=== PATIENT | female | born 1990 | race Two or more races ===

== ENCOUNTER 2021-09-18 14:13 | Outpatient (REF) | payer MEDICAID, OTHER, SELFPAY ==
--- NOTE | ~2021-09-18 | XR_ITS ---
EXAMINATION: XR ANKLE, RIGHT CLINICAL INFORMATION: Pain. COMPARISON: None TECHNIQUE: AP, lateral, and mortise views of the right ankle. FINDINGS: Soft tissue swelling, more apparent in the medial surface of the ankle. No unexpected radiopaque foreign bodies. No acute fractures or malalignment. The ankle mortise is congruent. XR/XR ankle RT min 3V IMPRESSION: Nonspecific soft tissue swelling. No acute fractures or malalignment.
--- NOTE | ~2021-09-18 | XR_ITS ---
EXAMINATION: XR KNEE, RIGHT CLINICAL INFORMATION: Pain. COMPARISON: None TECHNIQUE: Four views of the right knee. FINDINGS: No acute fractures or malalignment. No significant degenerative changes. Small joint effusion. No unexpected radiopaque foreign bodies. XR/XR knee RT 4V IMPRESSION: Small joint effusion. No acute fractures or malalignment.
== END 2021-09-18 14:14 | disposition home or self-care (01) ==
LOC: HO.XRAY 14:13
PROVIDERS: PCP Internal Medicine; Visit Provider Internal Medicine
DX: M25.571 Pain in right ankle and joints of right foot (principal); M25.561 Pain in right knee
CPT/HCPCS: 73564; 73610

== ENCOUNTER 2023-07-19 16:01 | Outpatient (REF) | payer MEDICAID, OTHER, SELFPAY ==
--- NOTE | ~2023-07-19 | XR_ITS ---
EXAMINATION: XR KNEE, RIGHT CLINICAL INFORMATION: Chronic pain right knee COMPARISON: X-ray the right knee September 2021 TECHNIQUE: Four views of the right knee. FINDINGS: No fracture or joint effusion. Alignment is anatomic. Joint spaces are maintained. No abnormal soft tissue calcification. XR/XR knee RT 3V IMPRESSION: Normal right knee.
== END 2023-07-19 16:02 | disposition home or self-care (01) ==
LOC: HO.HHCX 16:01
PROVIDERS: Visit Provider Internal Medicine
DX: M25.561 Pain in right knee (principal); G89.29 Other chronic pain
CPT/HCPCS: 73562

== ENCOUNTER 2024-09-26 14:00 | Emergency (ER) | payer MEDICAID, OTHER, SELFPAY ==
--- NOTE | ~2024-09-26 | XR_ITS ---
EXAMINATION: XR CHEST CLINICAL INFORMATION: pain COMPARISON: 01/03/2019. TECHNIQUE: 2 views of the chest were obtained. FINDINGS: The cardiac, hilar, and mediastinal contours are normal. The lungs are clear bilaterally. There is no pneumothorax or pleural effusion. There is no focal osseous or soft tissue abnormality. XR/XR chest 2V IMPRESSION: Normal chest. Electronically signed by: Skyler Akers MD 09/26/2024 03:11 PM BERRY
--- NOTE | 2024-09-26 14:04 | ECG_ITS ---
Test Reason : chest pain Blood Pressure : */* mmHG Vent. Rate : 72 BPM Atrial Rate : 72 BPM P-R Int : 128 ms QRS Dur : 90 ms QT Int : 418 ms P-R-T Axes : 65 27 45 degrees QTcB Int : 457 ms Normal sinus rhythm with sinus arrhythmia Normal ECG No previous ECGs available Referred By: Generic ED Physician Electronically Signed By: LAURENCE DOCKERY
[2024-09-26 14:39] VITALS: BP 132/49; PULSE 69; RESP 18; TEMP 36.8; O2SAT 100; BMI 24.5
--- NOTE | 2024-09-26 14:39 | ED.GENADULT ---
HPI - General Adult General Chief complaint: Chest Pain Stated complaint: Chest Pain Time Seen by Provider: 09/26/24 19:29 Source: patient and EMS Mode of arrival: ambulatory Limitations: no limitations History of Present Illness ED Provider: rosemarie ozuan NP HPI narrative: Patient is a 34-year-old female who presents emergency department for evaluation. She reports over the past 2 days she has been experiencing pain to the left anterior chest it is constant with varying intensity. She admits to a history of having acid reflux, and states that she typically experiences pain on the right side of her chest associated with her acid reflux. Has not previously experienced it on the left. However, she does state the way that the pain feels is exactly the same as what she has experienced on the right the only difference is the location it feels like ?it is inflamed and burning?. She contacted her primary care doctor's office and was advised to come to the emergency department for evaluation. She denies any radiation of the pain, no diaphoresis, has associated nausea but no vomiting, pain is not exacerbated on exertion. Denies any recent URI symptoms. Denies history of VTE/malignancy, no lower extremity redness pain or swelling. Related Data Previous Rx's ?Medication ?Instructions ?Recorded famotidine 20 mg tablet 20 mg PO DAILY #30 tabs 09/26/24 Allergies Allergy/AdvReac Type Severity Reaction Status Date / Time No Known Allergies Allergy Verified 09/26/24 14:43 Review of Systems Review of Systems: Yes all other systems are reviewed and are negative PMFSH Past Medical History Attestation statement: The following information was validated with the patient. Source: old records reviewed Social History Social History Smoked in Last 30 Days: No Use of substances other than those prescribed or required for medical reasons: No Advance Directives: No Advance Directives Information Provided: Yes Physical Exam ED Vital Signs: Vital Signs - 24 hr 09/26/24 14:39 09/26/24 19:33 09/26/24 21:03 Temperature 98.3 F 98.5 F 98.5 F Pulse Rate 69 62 61 Respiratory Rate 18 15 15 Blood Pressure 132/49 L 123/56 L 111/59 L Pulse Oximetry 100 100 100 Oxygen Delivery Method Room Air Room Air Room Air 09/26/24 21:53 Temperature 98.5 F Pulse Rate 61 Respiratory Rate 15 Blood Pressure 111/59 L Pulse Oximetry 100 Oxygen Delivery Method Room Air BMI result Body Mass Index 24.5 Appearance: Alert.?Oriented to person, place and time. No acute distress.?Normal affect. Eyes: Pupils equal, round and reactive to light.? ENT: Pharynx normal.?? Neck: Normal inspection.? Neck supple.??No JVD. CVS: Heart sounds normal. Normal heart rate and rhythm.? Pulses normal.?? Respiratory: No respiratory distress.? Lung sounds clear to auscultation bilaterally?? Abdomen: Soft and non-tender. Normoactive bowel sounds. No pulsatile mass.?? Skin: Skin warm and dry.? Normal skin color.? ?? Extremities: No lower extremity edema.? No calf ttp? Neuro: Moves all extremities spontaneously. Sensation intact bilaterally. CN II-XII intact. No focal neuro deficits. Ambulates with normal steady gait. Course Course Course Narrative: RME, this is a rapid medical exam performed by Isaías Spann please refer to primary provider for complete H&P- 34-year-old female presents evaluation of chest pain. Symptoms started 2 days ago. She does have a history of GERD but her symptoms feel different than her typical GERD symptoms. She feels that her GERD symptoms are usually right-sided but today her pain is in the left. Plan for cardiac workup Medications Administered Discontinued Medications Generic Name Dose Route Start Last Admin Trade Name Freq PRN Reason Stop Dose Admin Al Hydroxide/Mg Hydroxide 30 ml 09/26/24 20:19 09/26/24 20:33 Magnesium Hydrox/Alum Hydrox 30 Ml Oral.Susp PO 09/26/24 20:20 30 ml ONCE ONE Administration Famotidine 20 mg 09/26/24 20:19 09/26/24 20:31 Famotidine 20 Mg Tablet PO 09/26/24 20:20 20 mg ONCE ONE Administration Lidocaine HCl 15 ml 09/26/24 20:19 09/26/24 20:33 Lidocaine Hcl Viscous 2 % 15 Ml Solution MUCOUS MEM 09/26/24 20:20 15 ml ONCE ONE Administration Medical Decision Making Medical Decision Making [facility] Narrative: Patient is a 34-year-old female with past medical history of GERD who presents to the emergency department for evaluation with complaint of chest pain as per HPI. Pain is reproducible to palpation, diffuse throughout the anterior chest. No evidence of volume overload or shock on exam. EKG revealing normal sinus rhythm with ventricular rate of 72, QTC 457, without signs of acute ischemia. EKG without evidence of STEMI. High sensitive troponin below detectable limits consistent with ACS. Low suspicion for acute PE (Wells low risk), pneumothorax, thoracic aortic dissection, cardiac effusion / tamponade. No recent trauma or injury, no tracheal deviation, unlikely tension pneumothorax. No recent URI symptoms to suggest viral illness, pneumonia, costochondritis, viral serologies negative. No abdominal tenderness upon palpation, negative Bhatia sign, unlikely acute cholecystitis, choledocholithiasis, no fever or jaundice to suggest acute cholangitis, may possibly be biliary colic secondary to cholelithiasis. Denies excessive alcohol consumption, history of diabetes, lower suspicion acute pancreatitis. Will try treatment with Maalox and lidocaine viscous in addition to famotidine at this time. Differential Diagnosis Differential Diagnoses: The differential diagnosis associated with the presentation includes (See narrative above) Admission/Observation Consideration of admission/observation: Escalation of care including admission/observation considered (See narrative above and course narrative for further detail) Lab Data MDM Lab Attestation statement: I reviewed the patient's lab results. CBC is without leukocytosis anemia or thrombocytopenia. No electrolyte derangement. No JOELLEN. Mildly elevated AST/ALT with normal lipase benign abdominal examination, unlikely acute hepatobiliary etiology. 09/26/24 19:05 09/26/24 19:05 Labs: Lab Results 09/26/24 Range/Units 19:05 WBC 7.3 (4.8-10.8) X10*3/uL RBC 4.33 (4.20-5.50) X10*6/uL Hgb 12.7 (12.0-16.0) g/dl Hct 38.2 (37.0-47.0) % MCV 88.2 (80.0-98.0) fL MCH 29.3 (27.0-33.0) pg MCHC 33.2 (31.0-35.0) g/dl RDW 12.4 (11.0-16.0) % Plt Count 245 (160-400) X10*3/uL MPV 9.7 (9.4-12.3) fL Immature Gran % (Auto) 0.3 (0.0-0.4) % Neut % (Auto) 46.5 (45-73) % Lymph % (Auto) 41.5 H (20-40) % [place] % (Auto) 9.1 (2-11) % Eos % (Auto) 1.9 (0-4) % Baso % (Auto) 0.7 (0-2) % Lymph # (Auto) 3.0 (1.2-4.9) X10*3/uL [place] # (Auto) 0.7 (0.1-1.2) X10*3/uL Eos # (Auto) 0.1 (0.0-0.4) X10*3/uL Baso # (Auto) 0.1 (0.0-0.2) X10*3/uL Abs Immat Gran (auto) 0.02 (0.00-0.03) X10*3/uL Absolute Neuts (auto) 3.4 (2.0-8.3) x10*3/uL Absolute Nucleated RBC 0.000 (0.0-0.012) X10*3/uL Nucleated RBC % (auto) 0.0 (0.0-0.2) /100WBC PT 12.2 (10.9-12.4) SEC INR 1.0 (0.9-1.1) Sodium 139 (135-145) mmol/L Potassium 4.0 (3.3-5.1) mmol/L Chloride 108 (96-108) mmol/L Carbon Dioxide 25 (22-29) mmol/L Anion Gap 10 L (12-20) BUN 14 (9-16) mg/dL Creatinine 0.69 (0.5-1.4) mg/dL Estim Creat Clear Calc 114.8 Estimated GFR > 60 Random Glucose 95 (60-115) mg/dL Calcium 8.8 (8.4-10.2) mg/dL Total Bilirubin 0.2 (0.0-1.0) mg/dL AST 36 H (5-31) U/L ALT 47 H (0-31) U/L Alkaline Phosphatase 64 (39-117) U/L Troponin I High Sens < 2.7 (<3.5-17.0) ng/L Total Protein 7.7 (6.5-8.0) g/dL Albumin 4.2 (3.5-5.0) g/dL Lipase 27 (8-78) U/L Beta HCG, Quant < 2 mIU/mL Influenza Type A (PCR) NEGATIVE (Negative) Influenza Type B (PCR) NEGATIVE (Negative) RSV RNA Qual (PCR) NEGATIVE (Negative) SARS-CoV-2 RNA (RT-PCR) NEGATIVE (Negative) Independent Interpretation I performed an independent interpretation of an: EKG (See narrative above) and Plain X-Ray (No consolidation or infiltrate) Radiology Impression Discussion of test interpretation with radiology: I have reviewed the radiologist's reading. Radiologist Impression: XR/XR chest 2V IMPRESSION: Normal chest. Independent Historian Clinical information obtained from an independent historian. History obtained from or confirmed by: Spouse Prescription Management I considered prescription management with: Other Discharge Plan Discharge Clinical Impression: Atypical chest pain Patient Disposition: Home, Self-Care Instructions: Chest Pain (ED), Noncardiac Chest Pain (ED) Additional Instructions: Continue taking your medications as prescribed. Follow-up with your primary care doctor. Avoid triggers such as fatty foods, spicy foods, tomatoes, onions, coffee, tea, chocolate, and alcohol. Remaining upright after meals for 1-2 hours. Avoid eating at least 3 hours before bedtime. Try sleeping on an incline if possible. Prescriptions: New famotidine 20 mg tablet 20 mg PO DAILY Qty: 30 0RF Referrals: Adonay Pozo MD [Primary Care Provider] - Interventions: ED Discharge Assessment Last Done: 09/26/24 21:53 Discharge Date/Time: 09/26/24 22:12 Print Language: Georgian
[2024-09-26 19:14] LABS: MANUAL DIFF FLAG NO
[2024-09-26 19:21] LABS: Basophils Absolute Auto 0.1 X10*3/uL (0.0-0.2); Basophils Percent Auto 0.7 % (0-2); Eosinophils Absolute Auto 0.1 X10*3/uL (0.0-0.4); Eosinophils Percent Auto 1.9 % (0-4); Hematocrit 38.2 % (37.0-47.0); Hemoglobin 12.7 g/dl (12.0-16.0); Imm Gran Abs Auto 0.02 X10*3/uL (0.00-0.03); Imm Gran Pct Auto 0.3 % (0.0-0.4); Lymphocytes Percent Auto 41.5 % (20-40); Mean Corpuscular HGB Conc 33.2 g/dl (31.0-35.0); Mean Corpuscular Hemoglobin 29.3 pg (27.0-33.0); Mean Corpuscular Volume 88.2 fL (80.0-98.0); Mean Platelet Volume 9.7 fL (9.4-12.3); Monocytes Absolute Auto 0.7 X10*3/uL (0.1-1.2); Monocytes Percent Auto 9.1 % (2-11); Neutrophils Absolute Auto 3.4 x10*3/uL (2.0-8.3); Neutrophils Percent Auto 46.5 % (45-73); Platelet Count 245 X10*3/uL (160-400); Red Blood Count 4.33 X10*6/uL (4.20-5.50); Red Cell Distribution Width 12.4 % (11.0-16.0); White Blood Count 7.3 X10*3/uL (4.8-10.8)
[2024-09-26 19:28] LABS: Prothrombin Time 12.2 SEC (10.9-12.4)
[2024-09-26 19:33] VITALS: BP 123/56; PULSE 62; RESP 15; TEMP 36.9; O2SAT 100
[2024-09-26 19:34] LABS: Alanine Aminotransferase 47 U/L (0-31); Albumin Level 4.2 g/dL (3.5-5.0); Alkaline Phosphatase 64 U/L (39-117); Anion Gap 10 (12-20); Aspartate Amino Transferase 36 U/L (5-31); Bilirubin Total 0.2 mg/dL (0.0-1.0); Blood Urea Nitrogen 14 mg/dL (9-16); Calcium 8.8 mg/dL (8.4-10.2); Carbon Dioxide 25 mmol/L (22-29); Chloride 108 mmol/L (96-108); Creatinine Clr Calc Pharmacy 114.8; Estimated Glomerular Filt Rate > 60; Glucose Random 95 mg/dL (60-115); Lipase 27 U/L (8-78); Sodium 139 mmol/L (135-145); Total Protein 7.7 g/dL (6.5-8.0)
[2024-09-26 19:42] LABS: HCG Quantitative < 2 mIU/mL; Troponin-I High Sensitivity < 2.7 ng/L (<3.5-17.0)
[2024-09-26 20:00] LABS: Influenza A PCR NEGATIVE (Negative); Influenza B PCR NEGATIVE (Negative); Resp Syncy Virus RNA Qual PCR NEGATIVE (Negative); SARS COV2 PCR INHOUSE NEGATIVE (Negative)
[2024-09-26] MEDS: Famotidine 20 MG TABLET PO (20:31)
[2024-09-26] MEDS: Magnesium Hydrox/Alum Hydrox 30 ML ORAL.SUSP PO (20:33)
[2024-09-26] MEDS: Lidocaine HCl Viscous 2 % 15 ML SOLUTION MUCOUS MEM (20:33)
[2024-09-26 21:03] VITALS: BP 111/59; PULSE 61; RESP 15; TEMP 36.9; O2SAT 100
[2024-09-26 21:53] VITALS: BP 111/59; PULSE 61; RESP 15; TEMP 36.9; O2SAT 100
== END 2024-09-26 22:12 | disposition home or self-care (01) ==
PROVIDERS: Physician Assistant; Emergency Provider Emergency Medicine; PCP Internal Medicine
DX: R07.9 Chest pain, unspecified (principal); Z03.818 Encounter for observation for suspected exposure to other biological agents ruled out
CPT/HCPCS: 0241U; 36415; 71046; 80053; 83690; 84484; 84702; 85025; 85610; 93005; 99283; 99285

== ENCOUNTER → 2024-09-26 14:04 | Outpatient (BNV) | payer SELFPAY | PROVIDERS: PCP Internal Medicine; Visit Provider Internal Medicine | DX: R07.9 Chest pain, unspecified (principal) | CPT/HCPCS: 93010 ==

== ENCOUNTER → 2024-09-26 14:40 | Outpatient (BNV) | payer SELFPAY | PROVIDERS: PCP Internal Medicine; Visit Provider Radiology Diagnostic Radiology | DX: R07.9 Chest pain, unspecified (principal) | CPT/HCPCS: 71046 ==